=== PATIENT | female | born 1995 | race Caucasian/White ===

== ENCOUNTER 2022-04-22 19:33 | Emergency (ER) | payer BC ==
[~2022-04-22] VITALS: Ht 167.6 cm; Wt 68.2 kg
[2022-04-22 19:41] VITALS: TEMP 98.7
[2022-04-22 19:45] LABS: COLLECTION METHOD CLEAN CATCH
[2022-04-22 19:54] LABS: SQUAMOUS EPITHELIAL 0-2 /hpf (0-10); URINE BACTERIA None Seen /hpf (NONE SEEN); URINE RBC 0-2 /hpf (0-2)
[2022-04-22 19:55] LABS: PH 6.5 (5.0-8.5); URINE APPEARANCE Clear (CLEAR/HAZY); URINE BLOOD 1+ (NEGATIVE); URINE COLOR Straw (YELLOW); URINE GLUCOSE Negative (NEGATIVE); URINE KETONE Negative (NEGATIVE); URINE NITRATE Negative (NEGATIVE); URINE PROTEIN(semi-quant) Negative (NEGATIVE); URINE UROBILINOGEN 0.2 E.U/dL (0.2-1.0)
[2022-04-22] MEDS ORDERED: CEFTIN500 MG PO (20:36)
[2022-04-22] MEDS ORDERED: MACROBID 1100 MG/CAP PO (20:56)
[2022-04-22 21:01] VITALS: BP 130/73; PULSE 96
== END 2022-04-22 21:01 | disposition home or self-care (01) ==
LOC: COL.ER 19:33
PROVIDERS: Emergency Medicine
DX: N39.0 Urinary tract infection, site not specified (principal); Z28.310 Unvaccinated for COVID-19